=== PATIENT | male | born 1990 | race Two or more races ===

== ENCOUNTER 2023-11-23 11:24 | Outpatient (REF) | payer OTHER, SELFPAY ==
[2023-11-23 13:24] LABS: MANUAL DIFF FLAG NO
[2023-11-23 13:48] LABS: Basophils Absolute Auto 0.1 X10*3/uL (0.0-0.2); Basophils Percent Auto 1.4 % (0-2); Eosinophils Absolute Auto 0.2 X10*3/uL (0.0-0.4); Eosinophils Percent Auto 6.3 % (0-4); Hematocrit 45.6 % (42.0-52.0); Hemoglobin 16.1 g/dl (14.0-18.0); Lymphocytes Percent Auto 55.3 % (20-40); Mean Corpuscular HGB Conc 35.3 g/dl (31.0-36.0); Mean Corpuscular Hemoglobin 31.9 pg (27.0-33.0); Mean Corpuscular Volume 90.3 fL (80.0-98.0); Mean Platelet Volume 11.1 fL (9.4-12.4); Monocytes Absolute Auto 0.3 X10*3/uL (0.1-1.2); Monocytes Percent Auto 8.2 % (2-11); Neutrophils Absolute Auto 1.1 x10*3/uL (2.0-8.3); Neutrophils Percent Auto 28.8 % (45-73); Platelet Count 198 X10*3/uL (160-400); Red Blood Count 5.05 X10*6/uL (4.60-5.80); Red Cell Distribution Width 12.4 % (11.0-16.0); White Blood Count 3.7 X10*3/uL (4.8-10.8)
[2023-11-23 14:04] LABS: Alanine Aminotransferase 69 U/L (0-40); Albumin Level 4.4 g/dL (3.5-5.0); Alkaline Phosphatase 61 U/L (39-117); Anion Gap 11 (12-20); Aspartate Amino Transferase 27 U/L (5-37); Bilirubin Total 0.7 mg/dL (0.0-1.0); Blood Urea Nitrogen 8 mg/dL (9-16); Calcium 9.5 mg/dL (8.4-10.2); Carbon Dioxide 27 mmol/L (22-29); Chloride 105 mmol/L (96-108); Cholesterol 163 mg/dL (<200); Estimated Glomerular Filt Rate > 60; Glucose Random 91 mg/dL (60-115); HDL Cholesterol 44 mg/dL (>40); LDL Cholesterol Calculated 101 mg/dL (<100); Potassium 3.8 mmol/L (3.3-5.1); Sodium 139 mmol/L (135-145); Total Protein 7.1 g/dL (6.5-8.0); Triglycerides 94 mg/dL (<150)
== END 2023-11-23 11:25 | disposition home or self-care (01) ==
LOC: HO.10HDL 11:24
PROVIDERS: Visit Provider Internal Medicine
DX: Z00.00 Encounter for general adult medical examination without abnormal findings (principal); Z13.31 Encounter for screening for depression; L05.92 Pilonidal sinus without abscess; I10 Essential (primary) hypertension; F10.10 Alcohol abuse, uncomplicated
CPT/HCPCS: 36415; 80053; 80061; 85025

== ENCOUNTER 2023-12-13 09:05 | Outpatient (AMB) | payer OTHER, SELFPAY ==
--- NOTE | 2023-12-13 09:07 | MHC.OFFVIS ---
Vital Signs 12/13/23 09:12 Height 5 ft 6 in Weight 178 lb 12.718 oz BMI 28.9 BP 120/80 Blood Pressure Location Rt brachial Position Sitting Pulse 62 Intake Visit Reasons: Pilonidal sinus w/intermittent d/c, pain, swelling Intake Note: Patient referred by pcp Dr. Francois for pilonidal cyst. Present for 6yrs. Patient c/o: intermittent discharge, pain, swelling. Reports flare over the weekend. 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 The swelling on least 6 years. He has had several flare-ups which have been treated conservatively with antibiotics and local wound care. He presents here for another flare-up and he wishes to have this area removed. Chart was reviewed and patient evaluated [facility] Social History (Updated 12/13/23 @ 09:12 by FER Butts) Alcohol intake: current Alcohol intake frequency: holidays/special occasions only Alcohol type: hard liquor Patient Tobacco Use Status: Never used Tobacco Physical Exam Vital Signs: Last Vital Signs Pulse 62 12/13/23 09:12 BP 120/80 12/13/23 09:12 BMI result Body Mass Index 28.9 Chest Other: Chest breath sounds bilaterally, HS 1 in 2 GI Other: Abdomen is soft, benign Back/Spine/Pelvis Other: Pilonidal sinuses of iris cleft. Mild induration. No evidence of any fluctuance or abscess. Assessment & Plan Assessment & Plan (1) Pilonidal disease of iris cleft: Code(s): L08.89 - Other specified local infections of the skin and subcutaneous tissue Category: Surgical Plan Current plan is treat patient conservatively with antibiotics and local wound care. He wishes to have this excised. We will arrange for this in the few weeks time once the current flare-up has resolved. Risks, benefits, alternatives of procedure reviewed with the patient and included but not limited to bleeding, infection, recurrence, numbness, pain, scarring, seroma formation, wound dehiscence and the patient understood and wishes to proceed. A lengthy discussion was had regarding the patient to be inactive/sedentary and initial weeks following this and he understands. Patient will be given antibiotics, and scheduled for surgery in a few weeks' time. All questions answered. Medications: New cephalexin 500 mg PO TID 30 caps 0RF Coding Level of Care Code New Pt Level 5 (81038) Diagnoses Pilonidal disease of cleft L08.89
[2023-12-13 09:12] VITALS: BP 120/80; PULSE 62; BMI 28.9
== END 2023-12-13 09:32 | disposition home or self-care (01) ==
PROVIDERS: PCP Internal Medicine; Referring Provider Internal Medicine; Visit Provider Surgery
DX: L08.89 Other specified local infections of the skin and subcutaneous tissue (principal)
CPT/HCPCS: 99204

== ENCOUNTER → 2023-12-13 09:05 | Outpatient (BNVA) | payer OTHER, SELFPAY | PROVIDERS: PCP Internal Medicine; Referring Provider Internal Medicine; Visit Provider Surgery ==

== ENCOUNTER 2024-07-17 10:49 | Outpatient (REF) | payer OTHER, SELFPAY ==
--- OUTSIDE RECORDS SUMMARY | 2024-07-17 11:51 | XMS_ITS | Clinical Summary ---
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 10 mL 1 12/24/2020 Active Active Problems No known active problems Immunizations Name Administration Dates Next Due Influenza, trivalent (IIV3), split virus (single-dose) PF 04/23/2020 Family History Medical History Relation Comments No Known Problems Father No Known Problems Father's Brother No Known Problems Maternal Grandfather No Known Problems Maternal Grandmother No Known Problems Mother No Known Problems Mother's Sister Cancer Paternal Grandfather Cancer Paternal Grandmother No Known Problems Son Relation Status Comments Father Alive Father's Brother Maternal Grandfather Maternal Grandmother Mother Alive Mother's Sister Paternal Grandfather Paternal Grandmother Son Social History Tobacco Use Types Packs/Day Years Used Date Smoking Tobacco: Never Smokeless Tobacco: Never Comments:Works @ [employer]. Alcohol Use Standard Drinks/Week Comments Yes 0 (1 standard drink = 0.6 oz pur e alcohol) AUDIT-C Answer Date Recorded Q1: How often do you have a drink containing alc ohol? Monthly or less 05/21/2020 Average Number of Drinks Not on file 020 Frequency of Binge Drinking Not on file 01/2020 PHQ-2 Answer Date Recorded Patient Health Questionnaire-2 Score 0 05/21/2020 Sex and Gender Information Value Date Recorded Sex Assigned at Not on file Gender Identity Not on file Sexual Orientation Not on file Last Filed Vital Signs Vital Sign Reading Time Taken Comments Blood Pressure 133/74 05/21/2020 4:42 PM EST Pulse 83 05/21/2020 4:42 PM EST Temperature 36.3 ??C (97.4 ??F) 05/21/2020 4:42 PM ES T Respiratory Rate 16 05/21/2020 4:42 PM EST Oxygen Saturation 99% 05/21/2020 4:42 PM EST Inhaled Oxygen Concentration - - Weight 81.3 kg (179 lb 3.2 oz) 05/21/2020 4:42 P M EST Height 174 cm (5' 8.5 ) 10/10/2019 10:18 AM EDT Body Mass Index 26.85 10/10/2019 10:18 AM EDT Plan of Treatment Health Maintenance Due Date Last Done Comments Hepatitis C Screening 1990 PHQ-9 Depression Screen 2002 Complete Annual HRA 2008 KAL-7 Anxiety Screen 2008 DTaP,Tdap,and Td Vaccines (1 - Tdap) 2009 Annual Preventive Exam 02/13/2021 02/14/2020, 2019 COVID-19 Vaccine (1 - 2023- season) 2024 Influenza Vaccine (#1) 2024 04/23/2020 RSV Vaccine (SCDM) (1 - 1-dose 75+ series) 2065 Care Teams 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
--- OUTSIDE RECORDS SUMMARY | 2024-07-17 11:52 | XMS_ITS | Clinical Summary ---
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 Name Role Phone Unavailable Primary Care Provider Unavailabl e Social History Tobacco Use Types Packs/Day Years Used Date Smoking Tobacco: Never Assessed Sex and Gender Information Value Date Recorded Sex Assigned at Not on file Gender Identity Not on file Sexual Orientation Not on file Plan of Treatment Health Maintenance Due Date Last Done Comments DTaP,Tdap,and Td Vaccines (1 - Tdap) 2009 Hepatitis B Vaccines (1 of 3 - 19+ 3-dose series) 2009 COVID-19 Vaccine (2023-2 5 season) 2024 Influenza Vaccine (#1) 2024 HIB Vaccines Aged Out No longer eligi ble based on patient's age to complete this topic HPV Vaccines Aged Out No longer eligi ble based on patient's age to complete this topic Hepatitis A Vaccines Aged Out No long er eligible based on patient's age to complete this topic IPV Vaccines Aged Out No longer eligi ble based on patient's age to complete this topic MMR Vaccines Aged Out No longer eligi ble based on patient's age to complete this topic Meningococcal ACWY Vaccine Aged Out N o longer eligible based on patient's age to complete this topic Pneumococcal Vaccine: Pediat rics (0 to 5 Years) and At-Risk Patients (6 to 64 Years) Aged Out No longer eligible b ased on patient's age to complete this topic RSV Immunization Patients Un rolf 20 months Aged Out No longer eligible b ased on patient's age to complete this topic Varicella Vaccines Aged Out No longer eligible based on patient's age to complete this topic
[2024-07-17 13:09] LABS: MANUAL DIFF FLAG NO
[2024-07-17 13:34] LABS: Basophils Absolute Auto 0.1 X10*3/uL (0.0-0.2); Basophils Percent Auto 1.1 % (0-2); Eosinophils Absolute Auto 0.2 X10*3/uL (0.0-0.4); Eosinophils Percent Auto 2.8 % (0-4); Hematocrit 46.3 % (42.0-52.0); Hemoglobin 16.1 g/dl (14.0-18.0); Imm Gran Abs Auto 0.01 X10*3/uL (0.00-0.03); Imm Gran Pct Auto 0.2 % (0.0-0.4); Lymphocytes Absolute Auto 2.2 X10*3/uL (1.2-4.9); Mean Corpuscular HGB Conc 34.8 g/dl (31.0-36.0); Mean Corpuscular Hemoglobin 31.4 pg (27.0-33.0); Mean Corpuscular Volume 90.3 fL (80.0-98.0); Mean Platelet Volume 11.1 fL (9.4-12.4); Monocytes Absolute Auto 0.5 X10*3/uL (0.1-1.2); Neutrophils Absolute Auto 2.5 x10*3/uL (2.0-8.3); Neutrophils Percent Auto 46.9 % (45-73); Platelet Count 194 X10*3/uL (160-400); Red Blood Count 5.13 X10*6/uL (4.60-5.80); Red Cell Distribution Width 12.3 % (11.0-16.0); White Blood Count 5.4 X10*3/uL (4.8-10.8)
[2024-07-17 14:45] LABS: Thyroid Stimulating Hormone 2.31 uIU/mL (0.32-4.0)
[2024-07-17 14:48] LABS: Alanine Aminotransferase 68 U/L (0-40); Albumin Level 4.3 g/dL (3.5-5.0); Anion Gap 11 (12-20); Aspartate Amino Transferase 32 U/L (5-37); Bilirubin Total 0.4 mg/dL (0.0-1.0); Blood Urea Nitrogen 12 mg/dL (9-16); Calcium 9.5 mg/dL (8.4-10.2); Carbon Dioxide 26 mmol/L (22-29); Chloride 105 mmol/L (96-108); Estimated Glomerular Filt Rate > 60; Glucose Random 103 mg/dL (60-115); Potassium 4.1 mmol/L (3.3-5.1); Sodium 138 mmol/L (135-145)
[2024-07-17 15:38] LABS: Alkaline Phosphatase 74 U/L (39-117)
== END 2024-07-17 10:50 | disposition home or self-care (01) ==
LOC: HO.10HDL 10:49
PROVIDERS: Visit Provider Internal Medicine
DX: D72.820 Lymphocytosis (symptomatic) (principal); F10.10 Alcohol abuse, uncomplicated; I10 Essential (primary) hypertension; R05.3 Chronic cough; R74.01 Elevation of levels of liver transaminase levels
CPT/HCPCS: 36415; 80053; 84443; 85025